=== PATIENT | male | born 1965 | race Caucasian/White ===

== ENCOUNTER 2022-08-20 02:05 | Emergency (ER) | payer MEDICARE, MEDICAID ==
[~2022-08-20] VITALS: Ht 188 cm; Wt 81.0 kg
[2022-08-20 02:46] VITALS: BP 121/82
[2022-08-20] MEDS ORDERED: acetaminophen 325mg tablet PO ONE (03:10)
[2022-08-20] MEDS ORDERED: ibuprofen tablet 400 MG TABLET PO ONE (03:10)
--- NOTE | 2022-08-20 03:13 | NUR ---
Pt is in wet clothes, RN assisted pt taking off his wet sweater, covered him with warm blanket.
--- NOTE | 2022-08-20 04:40 | NUR ---
Pt refused to get out of his wet clothes. Warm blankets provided. Pt refusing vitals at this time.
== END 2022-08-20 05:15 | disposition home or self-care (01) ==
LOC: ER 02:06 → EDBD 02:06 → ER 05:15
DX: M25.561 Pain in right knee (principal); M25.562 Pain in left knee
CPT/HCPCS: 99283